=== PATIENT | female | born 1985 | race Caucasian/White ===

== ENCOUNTER 2018-02-05 21:21 | Emergency (ER) | payer OTHER ==
[~2018-02-05] VITALS: Ht 157.5 cm; Wt 56.7 kg
[2018-02-05 21:42] VITALS: Ht 157.5 cm; Wt 56.7 kg
[2018-02-05 22:16] LABS: BASOPHIL % 1.2 % (0-2); PLATELET COUNT 324 x10^3mcL (130-400)
[2018-02-05 22:17] LABS: RED CELL DISTRIBUTION WIDTH 18.6 % (11.5-14.5)
[2018-02-05 22:27] LABS: CALCIUM 8.6 mg/dL (8.5-10.1); CARBON DIOXIDE 28.3 mmol/L (21-32); CHLORIDE SERUM 108 mmol/L (98-107); CREATININE SERUM 0.7 mg/dL (0.6-1.0); GFR1 > 60 mL/min; GLUCOSE SERUM 99 mg/dL (74-106); POTASSIUM SERUM 3.5 mmol/L (3.5-5.1); SODIUM SERUM 141 mmol/L (136-145)
[2018-02-05 22:31] LABS: ALKALINE PHOSPHATASE 66 U/L (46-116); ALT/SGPT 16 U/L (14-59); AMYLASE 48 U/L (25-115); AST/SGOT 11 U/L (15-37); BILIRUBIN TOTAL 0.4 mg/dL (0.20-1.00); LIPASE 259 IU/L (73-393)
[2018-02-05 22:56] LABS: ALBUMIN 3.3 g/dL (3.4-5.0)
[2018-02-06 00:30] VITALS: BP 94/63
== END 2018-02-06 00:30 | disposition home or self-care (01) ==
LOC: ED 21:21
PROVIDERS: Emergency Medicine
DX: R11.2 Nausea with vomiting, unspecified (principal); R19.7 Diarrhea, unspecified
CPT/HCPCS: J1885; J2405; J2765; J7030